=== PATIENT | female | born 1995 | race American Indian/Alaskan Native ===

== ENCOUNTER 2018-10-06 15:24 | Emergency (ER) | payer OTHER ==
[2018-10-06 15:31] VITALS: BP 106/69
--- NOTE | 2018-10-06 15:41 | Emergency Department Report ---
Chief Complaint: Extremity Injury, Lower Stated Complaint: LEFT KNEE PAIN Time Seen by Provider: 10/06/18 15:40 - HPI History of Present Illness: L KNEE PAIN INJURED AT WORK - VANESA MSE COMPLETED - Exam Vital Signs: Vital Signs 10/06/18 15:30 Temperature 98.3 F Pulse Rate 88 Respiratory 18 Rate Blood Pressure 106/69 [Right] O2 Sat by Pulse 100 Oximetry MSE screening note: Focused history and physical exam performed. Due to findings the following was ordered: ED Disposition for MSE Condition: Stable
--- NOTE | 2018-10-06 16:39 | Emergency Department Report ---
ED Lower Extremity HPI - General Chief Complaint: Extremity Injury, Lower Stated Complaint: LEFT KNEE PAIN Time Seen by Provider: 10/06/18 15:40 Source: patient Mode of arrival: Ambulatory Limitations: No Limitations - History of Present Illness Initial Comments: This is a 22-year-old female who presents with left lateral knee pain for 2 weeks. Patient states she slipped in a [employer] on September 25 and fell and then uncomfortable ever since. She reports pain is 7/10 on pain scale and worse with movement. It is a achy sensation that is worse with movement. Patient states they feel like something is rubbing inside of her knee. Pain is worse with banding. She denies paresthesias, numbness or tingling, swelling, erythema, weakness, or warmth to the area. MD Complaint: knee injury (left knee) Onset/Timin -: week(s) Injury: Knee: Left Type of Injury: hyperflexion Place: street/outdoors Severity: moderate Severity scale (0 -10): 7 Improves With: immobilization Worsens With: movement Context: fall Associated Symptoms: able to partially bear weight, ambulatory - Related Data Previous Rx's Medication Instructions Recorded Last Taken Type Ibuprofen [Motrin 600 MG tab] 600 mg PO Q8H PRN #15 tablet 10/06/18 Unknown Rx ED Review of Systems ROS: Stated complaint: LEFT KNEE PAIN Other details as noted in HPI Constitutional: denies: chills, fever Respiratory: denies: cough, shortness of breath, wheezing Cardiovascular: denies: chest pain, palpitations Gastrointestinal: denies: abdominal pain, nausea, diarrhea Musculoskeletal: arthralgia (left knee pain). denies: back pain, joint swelling Skin: denies: rash, lesions Neurological: denies: headache, weakness, paresthesias Psychiatric: denies: anxiety, depression ED Past Medical Hx - Past Medical History Previous Medical History?: No - Surgical History Past Surgical History?: No - Social History Smoking Status: Never Smoker Substance Use Type: None - Medications Home Medications: Home Medications Medication Instructions Recorded Confirmed Last Taken Type Ibuprofen [Motrin 600 MG tab] 600 mg PO Q8H PRN #15 tablet 10/06/18 Unknown Rx ED Physical Exam - General Limitations: No Limitations General appearance: alert, in no apparent distress - Respiratory Respiratory exam: Present: normal lung sounds bilaterally. Absent: respiratory distress - Cardiovascular Cardiovascular Exam: Present: regular rate, normal rhythm. Absent: systolic murmur, diastolic murmur, rubs, gallop - GI/Abdominal GI/Abdominal exam: Present: soft, normal bowel sounds - Expanded Lower Extremity Exam Left Hip exam: Present: normal inspection, full ROM Upper Leg exam: Present: normal inspection, full ROM Knee exam: Present: full ROM (painfull ROM), tenderness (lateral patella), full knee extension. Absent: swelling, abrasion, laceration, ecchymosis, deformity, crepidus, dislocation, erythema, effusion, pain w/ pronation/supination, posterior draw sign, pain/laxity with valgus, pain/laxity with varus Lower Leg exam: Present: normal inspection, full ROM Ankle exam: Present: normal inspection, full ROM Foot/Toe exam: Present: normal inspection, full ROM Neuro vascular tendon exam: Present: no vascular compromise Gait: Positive: observed and limited by pain - Neurological Exam Neurological exam: Present: alert, oriented X3, normal gait - Psychiatric Psychiatric exam: Present: normal affect, normal mood - Skin Skin exam: Present: warm, dry, intact, normal color. Absent: rash ED Course Vital Signs 10/06/18 10/06/18 15:30 15:39 Temperature 98.3 F 98.3 F Pulse Rate 88 88 Respiratory 18 16 Rate Blood Pressure 106/69 Blood Pressure 106/69 [Right] O2 Sat by Pulse 100 100 Oximetry ED Lower Extremity MDM - Radiology Data Radiology results: report reviewed PROCEDURE: XR KNEE 3V LT TECHNIQUE: 3 views left knee HISTORY: PAIN no trauma was reported COMPARISONS: None FINDINGS: Normal bony mineralization. No fracture or dislocation. No radiopaque foreign body or soft tissue gas. No soft tissue reticulation. IMPRESSION: Normal 3 view series left knee.. - Medical Decision Making Patient was examined by me. Vitals are normal and patient is in no acute distress. Obtained a x-ray of left knee. X-rays dictated by radiologist and no acute findings. Patient informed of results. Start ibuprofen for pain. Plan discussed with patient to discharge home and treat outpatient. He agrees with ER plan. Patient discharged home in stable condition. Follow up with PCP in 2-3 days. Critical care attestation.: If time is entered above; I have spent that time in minutes in the direct care of this critically ill patient, excluding procedure time. ED Disposition Clinical Impression: Left knee pain Qualifiers: Chronicity: acute Qualified Code(s): M25.562 - Pain in left knee Muscle strain of left knee Qualifiers: Encounter type: initial encounter Qualified Code(s): S86.912A - Strain of unspecified muscle(s) and tendon(s) at lower leg level, left leg, initial encounter Disposition: TO HOME OR SELFCARE Is pt being admited?: No Does the pt Need Aspirin: No Condition: Stable Instructions: Arthralgia (ED), Knee Exercises (GEN), Knee Pain (ED) Additional Instructions: Rest Use ice or heat on affected area for 20 minutes and off for 2 hours. Take pain medication every 6-8 hours as needed for pain. Follow up with Primary Care Provider in 2-3 days. Prescriptions: Ibuprofen [Motrin 600 MG tab] 600 mg PO Q8H PRN #15 tablet PRN Reason: Pain [facility] Care Provider[facility] - 3-5 Days [facility] [Outside] - 3-5 Days [facility] [Outside] - 3-5 Days [facility] [Outside] - 3-5 Days B[facility] COSTA MD [Staff Physician] - 3-5 Days Forms: Work/School Release Form(ED) Time of Disposition: 18:54
--- NOTE | 2018-10-06 18:25 | XRay Report ---
PROCEDURE: XR KNEE 3V LT TECHNIQUE: 3 views left knee HISTORY: PAIN no trauma was reported COMPARISONS: None FINDINGS: Normal bony mineralization. No fracture or dislocation. No radiopaque foreign body or soft tissue gas. No soft tissue reticulation. IMPRESSION: Normal 3 view series left knee.. This document is electronically signed by Elida Horton MD., October 06 2018 06:23:07 PM ET
== END 2018-10-06 19:13 | disposition home or self-care (01) ==
LOC: ED 15:24
DX: S86.912A Strain of unspecified muscle(s) and tendon(s) at lower leg level, left leg, initial encounter (principal); W01.0XXA Fall on same level from slipping, tripping and stumbling without subsequent striking against object, initial encounter; Y93.89 Activity, other specified; Y92.89 Other specified places as the place of occurrence of the external cause; Y99.8 Other external cause status

== ENCOUNTER 2019-05-28 12:59 | Emergency (ER) | payer SELFPAY ==
--- NOTE | 2019-05-28 13:40 | Event Note ---
ED Screening Note ED Screening Note: abscess to gluteal cleft that began two weeks ago she states her boyfriend popped it at home and it made it worse no fever This initial assessment/diagnostic orders/clinical plan/treatment(s) is/are subject to change based on patients health status, clinical progression and re- assessment by fellow clinical providers in the ED. Further treatment and workup at subsequent clinical providers discretion. Patient/guardian urged not to elope from the ED as their condition may be serious if not clinically assessed and managed. Initial orders include: ACC eval
[2019-05-28] MEDS ORDERED: MORPHINE 4 MG/1 ML INJ IV ONE (14:13)
[2019-05-28] MEDS ORDERED: ONDANSETRON 4 MG/2 ML INJ IV ONE (14:13)
--- NOTE | 2019-05-28 14:18 | Emergency Department Report ---
- General Chief complaint: Skin/Abscess/Foreign Body Stated complaint: BUTTOCK RISEN/PAIN Time Seen by Provider: 05/28/19 13:39 Source: patient Mode of arrival: Ambulatory Limitations: No Limitations - History of Present Illness Initial comments: Patient is 23 years old female with no significant past medical history. Patient presented to the ER accompanied by her boyfriend complaining of a gluteal abscess for the last 2 weeks. Patient stated that are boyfriend tried to drain this morning and make it worse. Patient denied any fever or chills. No nausea or vomiting. MD complaint: abscess/boil -: week(s) (2) Location: buttocks Consistency: constant Treatments Prior to Arrival: attempted to drain pus at - Related Data Previous Rx's Medication Instructions Recorded Last Taken Type Ibuprofen [Motrin 600 MG tab] 600 mg PO Q8H PRN #15 tablet 10/06/18 Unknown Rx Allergies Allergy/AdvReac Type Severity Reaction Status Date / Time No Known Allergies Allergy Verified 05/28/19 13:40 Abscess Boil HPI - HPI Chief Complaint: Skin/Abscess/Foreign Body Stated Complaint: BUTTOCK RISEN/PAIN Time Seen by Provider: 05/28/19 13:39 Home Medications: Previous Rx's Medication Instructions Recorded Last Taken Type Ibuprofen [Motrin 600 MG tab] 600 mg PO Q8H PRN #15 tablet 10/06/18 Unknown Rx Allergies/Adverse Reactions: Allergies Allergy/AdvReac Type Severity Reaction Status Date / Time No Known Allergies Allergy Verified 05/28/19 13:40 ED Review of Systems ROS: Stated complaint: BUTTOCK RISEN/PAIN Other details as noted in HPI Comment: All other systems reviewed and negative Constitutional: denies: chills, fever Respiratory: denies: cough, shortness of breath, SOB with exertion Cardiovascular: denies: chest pain, palpitations Gastrointestinal: denies: abdominal pain, nausea, vomiting ED Past Medical Hx - Past Medical History Previous Medical History?: No - Surgical History Past Surgical History?: No - Social History Smoking Status: Never Smoker Substance Use Type: Marijuana - Medications Home Medications: Home Medications Medication Instructions Recorded Confirmed Last Taken Type Ibuprofen [Motrin 600 MG tab] 600 mg PO Q8H PRN #15 tablet 10/06/18 Unknown Rx ED Physical Exam - General Limitations: No Limitations General appearance: alert, in no apparent distress - Head Head exam: Present: atraumatic, normocephalic, normal inspection - ENT ENT exam: Present: normal exam, normal orophraynx, mucous membranes moist - Neck Neck exam: Present: normal inspection - Respiratory Respiratory exam: Present: normal lung sounds bilaterally - Cardiovascular Cardiovascular Exam: Present: tachycardia - GI/Abdominal GI/Abdominal exam: Present: soft. Absent: distended, tenderness, guarding, rebound - Neurological Exam Neurological exam: Present: alert, oriented X3 - Skin Skin exam: Present: other (4x4 cm swelling to the left buttock in the cleft. No obvious discharge.) ED Course Vital Signs 05/28/19 05/28/19 13:03 17:09 Temperature 98.7 F 98.8 F Pulse Rate 130 H 117 H Respiratory 18 20 Rate Blood Pressure 129/77 134/79 O2 Sat by Pulse 100 87 Oximetry ED Medical Decision Making - Lab Data Result diagrams: 05/28/19 14:22 05/28/19 14:22 - Radiology Data Radiology results: report reviewed Referring Physician: AGNIESZKA BANEGAS Patient Name: NUVIA ROBERTO Date of : 1995 Sex: Female Report Date: 2019-05-28 Report Status: [place] [address] Cat Scan Report Signed Patient: NUVIA ROBERTO MR#: [id number] : 1995 Acct:[id number] Age/Sex: 23 / F ADM Date: 05/28/19 Loc: ED Attending Dr: Ordering Physician: AGNIESZKA BANEGAS Date of Service: 05/28/19 Procedure(s): CT pelvis w con Accession Number(s): [id number] cc: AGNIESZKA BANEGAS CT pelvis w con INDICATION: Buttocks abscess. TECHNIQUE: All CT scans at this location are performed using the following dose modulation technique: Automated exposure control. Helical slices were obtained through the pelvis. 100 cc of Omnipaque 300 is administered. COMPARISON: None available. FINDINGS: There is edema in the subcutaneous fat upper buttocks thinning inferiorly in the midline cleft. This is posterior to the sacrum and coccyx. Posterior to the coccyx there is inflammation in the subcutaneous fat and there is a 1.5 cm fluid collection. This does not extend into the peritoneal cavity The imaged portion of the bowel is unremarkable. The appendix is normal in appearance. There is no inflammatory change within imaged portion of the peritoneal cavity. No extraperitoneal collections are seen. Bone windows, no acute osseous abnormality is seen. No periosteal reaction is seen. IMPRESSION: 1. There is inflammation in the small abscess in the subcutaneous fat in the mi dline of the upper portion of the buttock. The inflammation extends up to the coccyx. There is no periosteal reaction. Signer Name: Vijay Restrepo MD Signed: 05/28/2019 5:54 PM Workstation Name: [id number] Transcribed By: SS Dictated By: Vijay Restrepo MD Electronically Authenticated By: Vijay Restrepo MD Signed Date/Time: 05/28/191753 DD/ 49 TD/TT: - Medical Decision Making Patient is 23 years old female with no significant past medical history. Patient presented to the ER accompanied by her boyfriend complaining of a gluteal abscess for the last 2 weeks. Patient stated that are boyfriend tried to drain this morning and make it worse. Patient denied any fever or chills. No nausea or vomiting. Labs reviewed and is unremarkable. Patient received Zosyn and morphine. abscess already opened and drainage. Patient given prescription of Bactrim and norco. Critical care attestation.: If time is entered above; I have spent that time in minutes in the direct care of this critically ill patient, excluding procedure time. ED Disposition Clinical Impression: Abscess of buttock Disposition: DC-01 TO HOME OR SELFCARE Is pt being admited?: No Condition: Stable Instructions: Abscess (ED) Referrals: PRIMARY CARE, [Primary Care Provider] - 3-5 Days
[2019-05-28 14:56] LABS: Basophils % (Auto) 0.2 % (0.0-1.8); Eosinophils % (Auto) 0.2 % (0.0-4.3); Hemoglobin 12.4 gm/dl (10.1-14.3); Lymphocytes # (Auto) 0.9 K/mm3 (1.2-5.4); Monocytes % (Auto) 12.1 % (0.0-7.3)
[2019-05-28 15:00] LABS: Hematocrit 37.1 % (30.3-42.9); Mean Corpuscular HGB Conc 33 % (30-34); Mean Corpuscular Volume 92 fl (79-97); Platelet Count 193 K/mm3 (140-440); Red Blood Count 4.05 M/mm3 (3.65-5.03); Red Cell Distribution Width 15.1 % (13.2-15.2)
[2019-05-28 15:11] LABS: BUN/Creatinine Ratio 16; Blood Urea Nitrogen 8 mg/dL (7-17); Calcium 9.6 mg/dL (8.4-10.2); Hemolysis Index 27
[2019-05-28] MEDS ORDERED: PIPERACILLIN/TAZOBACTAM 3.375 3.375 GM/50 ML BAG IV ONE (16:38)
[2019-05-28 17:12] VITALS: BP 134/79
--- NOTE | 2019-05-28 17:59 | Cat Scan Report ---
CT pelvis w con INDICATION: Buttocks abscess. TECHNIQUE: All CT scans at this location are performed using the following dose modulation technique: Automated exposure control. Helical slices were obtained through the pelvis. 100 cc of Omnipaque 300 is adminis tered. COMPARISON: None available. FINDINGS: There is edema in the subcutaneous fat upper buttocks thinning inferiorly in the midline cleft. This is posterior to the sacrum and coccyx. Posterior to the coccyx there is inflammation in the subcutaneous fat and there is a 1.5 cm fluid col lection. This does not extend into the peritoneal cavity The imaged portion of the bowel is unremarkable. The appendix is normal in appearance. There is no in flammatory change within imaged portion of the peritoneal cavity. No extraperitoneal collections are seen. Bone windows, no acute osseous abnormality is seen. No periosteal reaction is seen. IMPRESSION: 1. There is inflammation in the small abscess in the subcutaneous fat in the midline of the upper por tion of the buttock. The inflammation extends up to the coccyx. There is no periosteal reaction. Signer Name: Vijay Restrepo MD Signed: 05/28/2019 5:54 PM Workstation Name: [id number]
== END 2019-05-28 18:15 | disposition home or self-care (01) ==
LOC: ED 12:59
DX: L02.31 Cutaneous abscess of buttock (principal); F12.10 Cannabis abuse, uncomplicated
CPT/HCPCS: 36415; 72193; 80048; 84703; 85025; 87040; J2270; J2405; J2543; Q9967; 96365; 96375

== ENCOUNTER 2019-09-11 14:31 | Emergency (ER) | payer SELFPAY ==
[2019-09-11 15:08] VITALS: BP 122/77
== END 2019-09-11 16:05 | disposition left against medical advice (07) ==
LOC: ED 14:31
DX: R10.31 Right lower quadrant pain (principal); Z53.21 Procedure and treatment not carried out due to patient leaving prior to being seen by health care provider

== ENCOUNTER 2020-06-18 19:30 | Emergency (ER) | payer SELFPAY ==
--- NOTE | 2020-06-18 19:54 | Emergency Department Report ---
ED Psych HPI - General Stated Complaint: SUICIDAL IDEATIONS Time Seen by Provider: 06/18/20 19:48 Source: patient, EMS Mode of arrival: Ambulatory Limitations: No Limitations - History of Present Illness Initial Comments: Chief complaint: "I just do not want to be here anymore." HPI: 24-year-old female with history of depression who presents via EMS. Roommate called EMS with concerns of suicidal ideation. Her mother at the age of 9. Since that time she has required counseling psychotherapy. Symptoms of depression have increased during pandemic. She has cut herself in the past. Last time she has cut herself was January. She smokes marijuana daily. Marijuana seems to be the only course of therapy that suits her. She is undergoing counseling on college campus. She is a college student attending [employer]. 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 She does not have a plan to harm herself or others. She denies hallucinations. She denies physical concerns. She does not have any medical medical ingestions. MD Complaint: suicidal ideation, feels depressed -: Gradual, month(s) (Several months worse over the last several days) Associated Psychiatric Symptoms: depression, suicidal ideation History of same: Yes Quality: constant Improves With: none Worsens With: none Context: not taking psychiatric, other (Uses marijuana to cope with her sym ptoms) Associated Symptoms: denies other symptoms Treatments Prior to Arrival: other (EMS transport to the emergency department, counseling on college campus) If Self Harm: admits thoughts of - Related Data Previous Rx's Medication Instructions Recorded Last Taken Type Ibuprofen [Motrin 600 MG tab] 600 mg PO Q8H PRN #15 tablet 10/06/18 Unknown Rx HYDROcodone/APAP 5-325 [[place] 1 each PO Q6HR PRN #14 tablet 05/28/19 Unknown Rx 5/325] Ondansetron [Zofran Odt] 4 mg PO Q8HR PRN #14 tab.rapdis 05/28/19 Unknown Rx Sulfamethoxazole/Trimethoprim 1 each PO BID #20 tablet 05/28/19 Unknown Rx [Bactrim DS TAB] Allergies Allergy/AdvReac Type Severity Reaction Status Date / Time No Known Allergies Allergy Verified 05/28/19 13:40 ED Review of Systems ROS: Stated complaint: SUICIDAL IDEATIONS Other details as noted in HPI Comment: All other systems reviewed and negative Constitutional: denies: fever, malaise Respiratory: denies: cough, shortness of breath Cardiovascular: denies: chest pain Gastrointestinal: abdominal pain, nausea, vomiting Skin: denies: rash, lesions Neurological: denies: headache Psychiatric: depression, suicidal thoughts. denies: auditory hallucinations, visual hallucinations, homicidal thoughts ED Past Medical Hx - Past Medical History Previous Medical History?: No - Surgical History Past Surgical History?: No - Social History Smoking Status: Never Smoker Substance Use Type: Marijuana - Medications Home Medications: Home Medications Medication Instructions Recorded Confirmed Last Taken Type Ibuprofen [Motrin 600 MG tab] 600 mg PO Q8H PRN #15 tablet 10/06/18 Unknown Rx HYDROcodone/APAP 5-325 [[place] 1 each PO Q6HR PRN #14 tablet 05/28/19 Unknown Rx 5/325] Ondansetron [Zofran Odt] 4 mg PO Q8HR PRN #14 tab.rapdis 05/28/19 Unknown Rx Sulfamethoxazole/Trimethoprim 1 each PO BID #20 tablet 05/28/19 Unknown Rx [Bactrim DS TAB] ED Physical Exam - General Limitations: No Limitations General appearance: alert, in no apparent distress - Head Head exam: Present: atraumatic, normocephalic - Eye Eye exam: Present: normal appearance - ENT ENT exam: Present: mucous membranes moist - Neck Neck exam: Present: normal inspection, full ROM - Respiratory Respiratory exam: Present: normal lung sounds bilaterally. Absent: respiratory distress, wheezes, rales, rhonchi - Cardiovascular Cardiovascular Exam: Present: regular rate, normal rhythm, normal heart sounds. Absent: systolic murmur, diastolic murmur, rubs, gallop - GI/Abdominal GI/Abdominal exam: Present: soft, normal bowel sounds. Absent: distended, tenderness, guarding, rebound - Extremities Exam Extremities exam: Present: normal inspection - Back Exam Back exam: Present: normal inspection - Neurological Exam Neurological exam: Present: alert, oriented X3 - Psychiatric Psychiatric exam: Present: normal mood, depressed, flat affect - Skin Skin exam: Present: warm, dry, intact, normal color. Absent: rash ED Course Vital Signs 06/18/20 20:10 Temperature 98 F Pulse Rate 102 H Respiratory 18 Rate Blood Pressure 120/84 O2 Sat by Pulse 98 Oximetry ED Medical Decision Making - Lab Data Result diagrams: 06/18/20 19:54 06/18/20 19:54 Laboratory Results - last 24 hr 06/18/20 06/18/20 06/18/20 19:54 19:54 19:54 WBC 3.9 L RBC 4.21 Hgb 13.7 Hct 40.9 MCV 97 MCH 33 H MCHC 34 RDW 13.3 Plt Count 182 Lymph % (Auto) 35.8 H [place] % (Auto) 9.5 H Eos % (Auto) 2.0 Baso % (Auto) 0.7 Lymph # (Auto) 1.4 [place] # (Auto) 0.4 Eos # (Auto) 0.1 Baso # (Auto) 0.0 Seg Neutrophils % 52.0 Seg Neutrophils # 2.0 Sodium 140 Potassium 3.3 L Chloride 104.0 Carbon Dioxide 22 Anion Gap 17 BUN 11 Creatinine 0.5 L Estimated GFR > 60 BUN/Creatinine Ratio 22 Glucose 83 Calcium 9.9 Urine Color Urine Turbidity Urine pH Ur Specific [place] Urine Protein Urine Glucose (UA) Urine Ketones Urine Blood Urine Nitrite Urine Bilirubin Urine Urobilinogen Ur Leukocyte Esterase Urine WBC (Auto) Urine RBC (Auto) U Epithel Cells (Auto) Urine Mucus Salicylates < 0.3 L Urine Opiates Screen Urine Methadone Screen Acetaminophen Ur Barbiturates Screen Ur Phencyclidine Scrn Ur Amphetamines Screen U Benzodiazepines Scrn Urine Cocaine Screen U Marijuana (THC) Screen Drugs of Abuse Note Plasma/Serum Alcohol 06/18/20 06/18/20 06/18/20 19:54 19:54 20:10 WBC RBC Hgb Hct MCV MCH MCHC RDW Plt Count Lymph % (Auto) [place] % (Auto) Eos % (Auto) Baso % (Auto) Lymph # (Auto) [place] # (Auto) Eos # (Auto) Baso # (Auto) Seg Neutrophils % Seg Neutrophils # Sodium Potassium Chloride Carbon Dioxide Anion Gap BUN Creatinine Estimated GFR BUN/Creatinine Ratio Glucose Calcium Urine Color Yellow Urine Turbidity Clear Urine pH 6.0 Ur Specific [place] 1.026 Urine Protein 100 mg/dl Urine Glucose (UA) Neg Urine Ketones 20 Urine Blood Mod Urine Nitrite Neg Urine Bilirubin Neg Urine Urobilinogen 2.0 Ur Leukocyte Esterase Neg Urine WBC (Auto) 6.0 Urine RBC (Auto) 6.0 U Epithel Cells (Auto) 2.0 Urine Mucus 3+ Salicylates Urine Opiates Screen Urine Methadone Screen Acetaminophen 5.0 L Ur Barbiturates Screen Ur Phencyclidine Scrn Ur Amphetamines Screen U Benzodiazepines Scrn Urine Cocaine Screen U Marijuana (THC) Screen Drugs of Abuse Note Plasma/Serum Alcohol < 0.01 06/18/20 20:10 WBC RBC Hgb Hct MCV MCH MCHC RDW Plt Count Lymph % (Auto) [place] % (Auto) Eos % (Auto) Baso % (Auto) Lymph # (Auto) [place] # (Auto) Eos # (Auto) Baso # (Auto) Seg Neutrophils % Seg Neutrophils # Sodium Potassium Chloride Carbon Dioxide Anion Gap BUN Creatinine Estimated GFR BUN/Creatinine Ratio Glucose Calcium Urine Color Urine Turbidity Urine pH Ur Specific [place] Urine Protein Urine Glucose (UA) Urine Ketones Urine Blood Urine Nitrite Urine Bilirubin Urine Urobilinogen Ur Leukocyte Esterase Urine WBC (Auto) Urine RBC (Auto) U Epithel Cells (Auto) Urine Mucus Salicylates Urine Opiates Screen Presumptive negative Urine Methadone Screen Presumptive negative Acetaminophen Ur Barbiturates Screen Presumptive negative Ur Phencyclidine Scrn Presumptive negative Ur Amphetamines Screen Presumptive negative U Benzodiazepines Scrn Presumptive negative Urine Cocaine Screen Presumptive negative U Marijuana (THC) Screen Presumptive positive Drugs of Abuse Note Disclamer Plasma/Serum Alcohol - Medical Decision Making Ms. Keene presents with suicidal ideation. She has required psychotherapy since a young age. History of cutting behavior. Suspect patient has major depressive disorder. Patient states that "I just want to be with my mother in [facility]. I am just all over this. I do not want to be here anymore." Patient is medically clear for psychiatric care. Awaiting treatment recom mendations by our psychiatric team. I was informed by treatment nurse that patient became limp belligerent. She eloped from the emergency department. I am unable to contract for safety at this time. She is not eligible for discharge. 1013 form completed for involuntary hold. Patient required seclusion and chemical restraint with [place]. I have reviewed labs CBC chemistry serum toxicology screen all within normal limits. Urine tox screen positive for marijuana. Urinalysis unremarkable. Critical care attestation.: If time is entered above; I have spent that time in minutes in the direct care of this critically ill patient, excluding procedure time. ED Disposition Clinical Impression: Acute depression, Suicidal ideation Disposition: DC/TX-65 PSY HOSP/PSY UNIT Is pt being admited?: No Does the pt Need Aspirin: No Condition: Stable
[2020-06-18 20:08] LABS: Basophils % (Auto) 0.7 % (0.0-1.8); Eosinophils # (Auto) 0.1 K/mm3 (0.0-0.4); Hematocrit 40.9 % (30.3-42.9); Hemoglobin 13.7 gm/dl (10.1-14.3); Lymphocytes # (Auto) 1.4 K/mm3 (1.2-5.4); Lymphocytes % (Auto) 35.8 % (13.4-35.0); Mean Corpuscular HGB Conc 34 % (30-34); Mean Corpuscular Volume 97 fl (79-97); Monocytes # (Auto) 0.4 K/mm3 (0.0-0.8); Monocytes % (Auto) 9.5 % (0.0-7.3); Platelet Count 182 K/mm3 (140-440); Red Blood Count 4.21 M/mm3 (3.65-5.03); Red Cell Distribution Width 13.3 % (13.2-15.2)
[2020-06-18 20:24] LABS: Bilirubin,Urine NEG (Negative); Blood,Urine MOD (Negative); Color,Urine Yellow (Yellow); Mucus,Urine 3+ /HPF
[2020-06-18 20:24] LABS: Blood Urea Nitrogen 11 mg/dL (7-17); Calcium 9.9 mg/dL (8.4-10.2); Hemolysis Index 8
[2020-06-18 20:29] LABS: BUN/Creatinine Ratio 22
[2020-06-18 20:31] LABS: Amphetamine Screen,Urine PRESUMPTIVE NEGATIVE; Benzodiazepines Screen,Urine PRESUMPTIVE NEGATIVE; Cannabinoid Screen,Urine PRESUMPTIVE POSITIVE; Cocaine Screen,Urine PRESUMPTIVE NEGATIVE; Methadone Screen,Urine PRESUMPTIVE NEGATIVE; Opiate Screen,Urine PRESUMPTIVE NEGATIVE
[2020-06-18] MEDS ORDERED: ZIPRASIDONE MESYLATE 20 MG VIAL IM ONE ×2 (21:28→21:42)
[2020-06-18] MEDS ORDERED: LORazepam 2 MG/ML VIAL IV ONE (22:00)
[2020-06-18] MEDS ORDERED: diphenhydrAMINE 50 MG/ML VIAL IM ONE (22:00)
[2020-06-18] MEDS ORDERED: LORazepam 2 MG/ML VIAL IM ONE (22:01)
[2020-06-18] MEDS ORDERED: POTASSIUM CHLORIDE ER 20 MEQ TAB PO ONE (23:29)
--- NOTE | 2020-06-19 08:14 | Consultation ---
History of Present Illness - Reason for Consult Consult date: 06/19/20 Reason for consult: MHE Requesting physician: CORDELL HAMLIN - History of Present Psychiatric Illness Per ED Provider: 24-year-old female with history of depression who presents via EMS. Roommate called EMS with concerns of suicidal ideation. Her mother at the age of 9. Since that time she has required counseling psychotherapy. Symptoms of depression have increased during pandemic. She has cut herself in the past. Last time she has cut herself was January. She smokes marijuana daily. Marijuana seems to be the only course of therapy that suits her. She is undergoing counseling on college campus. She is a college student attending [employer]. 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 She does not have a plan to harm herself or others. She denies hallucinations. She denies physical concerns. She does not have any medical medical ingestions. Per [facility]: Pt is a 24 y/o AA female who presents to the ED for MHE. Per triage note, College student at [employer]. Was found by roommate with belt around neck and was thinking about hanging self. Cooperative at this time. Procedures Nurse was unable to assess as pt was uncooperative and required seclusion. Per Medical records, pts roommate called EMS as pt was found with a Mary around her neck. Pt indicated I just do not want to be here anymore. Pt has a hx of self-harming behaviors via cutting. Last incident occurred in January. Hx of counseling. Endorses alcohol use daily. PSYCH HPI Patient is a 24-year-old single, -[place] college student who presented to the ED with suicidal ideation with attempt. Patient was brought to the ED by EMS, after roommate found patient restroom with a belt around her neck while patient was attempting to commit suicide. Patient reports her mom is , does not know her dad, reports she has been very alone always feeling lonely no friends, currently not in relationship, has no family support, no current mental or confident, constantly missing her mom. Patient endorses feeling constantly depressed, admits to SI thoughts, ho pelessness, and loneliness. PAST PSYCHIATRIC HISTORY Diagnoses: none reported Suicide attempts or Self-harm behavior: Yes, recent Prior psychiatric hospitalizations: none reported Substance Abuse history: Mary Previous psychiatric medications tried: none reported Outpatient treatment: none reported PAST MEDICAL HISTORY:none reported Family Psychiatric History: None reported or documented SOCIAL HISTORY Marital Status: Single Living Arrangements: rent/campus Employment Status: student Access to guns/weapons: none reported Education: IN college History of Abuse: None reported Legal History: yes REVIEW OF SYSTEMS Constitutional: Negative for weight loss ENT: Negative for stridor Respiratory: Negative for cough or hemoptysis All other systems reviewed and are negative MENTAL STATUS EXAMINATION General Appearance and Behavior: Age appropriate, good hygiene, wearing appropriate clothes,, good eye contact Cooperation: Participating/engaged, but Guarded Psychomotor Behavior: Psychomotor normal Mood: depressed Affect and affective range: irritable, labile Thought Process: illogical Thought Content: hopelessness, helplessness Speech: Normal rate, volume and rythm Intellectual Functioning: Average Suicidal Ideation: SI Homicidal Ideation: Denies HI Impulse Control: Impaired Insight and Judgment: Limited insight and judgment Memory: Normal Attention: Normal Orientation: Alert, oriented Diagnoses: Assessment and Plan - Psychiatric problem (1) MDD (major depressive disorder) Current Visit: Yes Status: Acute Treatment Plan MEDICATIONS: Risks, benefits and alternatives of medications discussed with the patient, questions answered and consent obtained from patient. PSYCHOTHERAPY: Supportive psychotherapy provided MEDICAL: Per primary team DELIRIUM PRECAUTIONS: Please re-orient patient frequently, keep lights on during the day, and minimize benzodiazepines and opiates as these medications could worsen patient's confusion. HEATING ENGINEER: DISPOSITION: Do Recommend acute inpatient psychiatric hospitalization at this time LEGAL STATUS: 1013 FOLLOW-UP: Will follow Thank you for the consult. Please contact with any questions and/or concerns. Medications and Allergies Allergies Allergy/AdvReac Type Severity Reaction Status Date / Time No Known Allergies Allergy Verified 05/28/19 13:40 Home Medications Medication Instructions Recorded Confirmed Last Taken Type No Known Home Medications [No 06/19/20 06/19/20 Unknown History Reported Home Medications] Mental Status Exam - Vital signs Last Vital Signs Temp 97.9 F 06/19/20 07:52 Pulse 86 06/19/20 07:52 Resp 20 06/19/20 07:52 BP 95/55 06/19/20 07:52 Pulse Ox 100 06/19/20 07:52 Results Result Diagrams: 06/18/20 19:54 06/18/20 19:54 Abnormal lab results 06/18/20 06/18/20 06/18/20 Range/Units 19:54 19:54 19:54 WBC 3.9 L (4.5-11.0) K/mm3 MCH 33 H (28-32) pg Lymph % (Auto) 35.8 H (13.4-35.0) % [place] % (Auto) 9.5 H (0.0-7.3) % Potassium 3.3 L (3.6-5.0) mmol/L Creatinine 0.5 L (0.6-1.2) mg/dL Salicylates < 0.3 L (2.8-20.0) mg/dL Acetaminophen (10.0-30.0) ug/mL 06/18/20 Range/Units 19:54 WBC (4.5-11.0) K/mm3 MCH (28-32) pg Lymph % (Auto) (13.4-35.0) % [place] % (Auto) (0.0-7.3) % Potassium (3.6-5.0) mmol/L Creatinine (0.6-1.2) mg/dL Salicylates (2.8-20.0) mg/dL Acetaminophen 5.0 L (10.0-30.0) ug/mL All other labs normal. Assessment and Plan - Psychiatric problem (1) MDD (major depressive disorder) Current Visit: Yes Status: Acute
[2020-06-19] MEDS: FLUoxetine 10 MG TAB PO SCH (11:22)
[2020-06-20 08:25] VITALS: BP 124/94
--- NOTE | 2020-06-20 10:20 | Progress Note ---
Subjective - Reason for Consult Consult date: 06/20/20 Reason for consult: suicidal thoughts - Chief Complaint Chief complaint: During my interview with the patient today, she is lying down. Her disposition is quiet. The patient says she "has a lot going on with school." She says she was "alone in her dorm room and had thoughts of killing herself." She said "so I called security and then the police." The patient becomes tearful and states "but that was at school. 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 She says sometimes she has trouble sleeping. She is upset and starts sobbing when advising her that I need to observe her a little longer. I asked the patient if she wanted me to call her sister and speak with her, she replied no. REVIEW OF SYSTEMS Constitutional: Negative for weight loss ENT: Negative for stridor Respiratory: Negative for cough or hemoptysis All other systems reviewed and are negative MENTAL STATUS EXAMINATION General Appearance and Behavior: Age appropriate, good hygiene, wearing appropriate clothes, good eye contact Cooperation: Participating/engaged, but Guarded Psychomotor Behavior: Psychomotor normal Mood: depressed Affect and affective range: congruent with stated mood, tearful Thought Process: logical Thought Content: depressive thoughts Speech: Normal rate, volume and rhythm Suicidal Ideation: Denies at present Homicidal Ideation: Denies Impulse Control: Impaired Insight and Judgment: Limited insight and judgment Memory: Normal Attention: Normal Orientation: Alert, oriented Assessment and Plan (1) MDD (major depressive disorder) Current Visit: Yes Status: Acute Treatment Plan MEDICATIONS: Increase Prozac 20mg po qd Start Seroquel 25mg po qhs to improve sleep and help with depression Risks, benefits and alternatives of medications discussed with the patient, questions answered and consent obtained from patient. PSYCHOTHERAPY: Supportive psychotherapy provided MEDICAL: Per primary team DELIRIUM PRECAUTIONS: Please re-orient patient frequently, keep lights on during the day, and minimize benzodiazepines and opiates as these medications could worsen patient's confusion. TILESETTER: DISPOSITION: Recommend acute inpatient psychiatric hospitalization at this time LEGAL STATUS: 1013 FOLLOW-UP: Will follow Thank you for the consult. Please contact with any questions and/or concerns. Mental Status Exam - Vital signs Last Vital Signs Temp 98.4 F 06/20/20 08:22 Pulse 90 06/20/20 08:22 Resp 18 06/20/20 08:22 BP 124/94 06/20/20 08:22 Pulse Ox 100 06/20/20 08:22
[2020-06-20] MEDS: FLUoxetine 10 MG TAB PO SCH (11:27)
[2020-06-20] MEDS ORDERED: QUEtiapine 25 MG TAB PO SCH (22:00)
[2020-06-21] MEDS ORDERED: FLUoxetine 20 MG CAP PO SCH (10:00)
== END 2020-06-20 15:20 ==
LOC: ED 19:30 → EEVIPCON 19:30 → ED 06-20 15:20
DX: F32.89 Other specified depressive episodes (principal); Z20.828 Contact with and (suspected) exposure to other viral communicable diseases; F12.10 Cannabis abuse, uncomplicated; Z79.899 Other long term (current) drug therapy
CPT/HCPCS: 36415; 80048; 80307; 81001; 84132; 84703; 85025; 96372; 99285; J1200; J2060; J3486; U0003; 80320; G0480